=== PATIENT | male | born 1985 | race Caucasian/White ===

== ENCOUNTER 2018-08-14 10:15 | Emergency (ER) | payer OTHER ==
[~2018-08-14] VITALS: Ht 170.2 cm; Wt 102.1 kg
[2018-08-14] MEDS ORDERED: PRINIVIL20 M1 PO (10:22)
[2018-08-14] MEDS ORDERED: HYDROCHLOROTHIA25 M1 PO (10:23)
[2018-08-14 10:45] LABS: ABSOLUTE BASOPHILS 0.1 thou/uL (0.0-0.2); ABSOLUTE EOSINOPHILS 0.7 thou/uL (0.0-0.7); ABSOLUTE LYMPHOCYTES 2.9 thou/uL (0.8-5.3); ABSOLUTE MONOCYTES 0.7 thou/uL (0.0-1.2); ABSOLUTE NEUTROPHILS 5.4 thou/uL (1.6-8.1); EOSINOPHILS 6.7 %; HEMATOCRIT 41.3 % (42.0-52.0); HEMOGLOBIN 14.2 gm/dL (14.0-18.0); LYMPHOCYTES 29.4 %; MCHC 34.3 g/dL (28.0-37.0); MCV 84.5 fL (80.0-100.0); MONOCYTES 7.3 %; MPV 7.4 fl. (7.2-11.1); NUCLEATED RBCS 0 /100WBC; POLYS 55.6 %; RBC 4.88 mil/uL (4.50-6.00); RDW-CV 13.6 % (10.5-14.5); WBC 9.8 thou/uL (4.0-11.0)
[2018-08-14 11:03] LABS: CREATININE 0.8 mg/dL (0.6-1.3); POTASSIUM 4.7 mmol/L (3.5-5.1); TOTAL BILIRUBIN 0.4 mg/dL (<0.1-1.0); TOTAL PROTEIN 7.1 g/dL (6.4-8.2); TROPONIN-I LEVEL 0.14 ng/mL (<0.06)
[2018-08-14 11:18] LABS: PLATELET COUNT* 269 thou/uL (150-400)
[2018-08-14 11:19] LABS: ANISOCYTOSIS 1+; PLATELET ESTIMATE ADEQUATE; POIKILOCYTOSIS 1+
[2018-08-14 11:20] LABS: ALBUMIN 3.6 g/dL (3.4-5.0); CALCIUM 8.7 mg/dL (8.5-10.1)
[2018-08-14 12:38] LABS: INR 1.1; PROTIME 10.8 Seconds (9.20-11.50)
--- NOTE | 2018-08-14 14:49 | EXE ---
[place] [address] STRESS ECHOCARDIOGRAM Name: JULISSA CEDEÑO Room: [facility]#: [id number] Admission: 08/14/18 Attend Phys: Discharge: Date of : 89 Date of Service: 08/14/18 1448 Report #: [id number] THIS REPORT FOR: //name// APPROVED REPORT Study performed: 08/14/2018 14:04:21 Exam: Stress Echocardiogram Indication: Chest pain Patient Location: In-Patient Stress Nurse: Regina Carrasco RN Supervising Physician: Logan Talbot MD Ht: 5 ft 7 in HR: 57 bpm BP: 168/82 mmHg Medical History Cardiac Risk Factors: FHX of CAD, Tobacco History (Former) Procedure The patient underwent an Exercise Stress Test using the Luis Protocol. Blood pressure, heart rate, and EKG were monitored. An Echocardiogram was performed by mechanical laboratory technician in four stages in quad fashion. At peak stress, four selected images were obtained and placed side by side with resting images for comparison. Stress Test Details Stress Test: Exercise stress testing was performed using a Luis protocol. HR Resting HR: 57 bpm Max Heart Rate (APMHR): 189 bpm Max HR Achieved: 157 bpm Target HR (85% APMHR): 160 bpm % of APMHR: 83 Recovery HR: 93 bpm HR response to stress: Normal HR response to stress BP Resting BP: 168/82 mmHg Max BP: 213/70 mmHg Recovery BP: 177/61 mmHg BP response to stress: Abnormal hypertensive response to stress. ECG Resting ECG: [place] [address] STRESS ECHOCARDIOGRAM Name: JULISSA CEDEÑO Room: [facility]#: [id number] Admission: 08/14/18 Attend Phys: Discharge: Date of : 89 Date of Service: 08/14/18 1448 Report #: [id number] Stress ECG: Sinus Tachycardia ST Change: None Arrhythmia: None Recovery ECG: Sinus Rhythm Recovery ST Change: None Recovery Arrhythmia: None Clinical Reason for Termination: Completed protocol Exercise duration: 10 min 31 sec Highest Stage Achieved: Stage 4: 4.2 mph at 16% grade. Exercise capacity: 12.62 METs The patient tolerated the Unna boot protocol exercise without significant cardiac symptoms. Stress ECG Conclusion The baseline 12-lead EKG shows sinus rhythm with normal ST and T wave segments. EKGs obtained during and post exercise showed sinus rhythm and sinus tachycardia with no significant ST or T wave changes when compared to baseline. Pre-Stress Echo The resting Echocardiogram showed normal left ventricular contractility with an estimated Ejection Fraction of about 60-65%. Post-Stress Echo The stress Echocardiogram showed normal left ventricular contractility with an estimated Ejection Fraction of about >70%. Conclusion Clinical Response: Non-ischemic Exercise Capacity: Average Stress ECG Response: Non-ischemic Stress Echo Images: Non-ischemic Other Information Study Quality: Good <ELECTRONICALLY SIGNED> By: Logan Talbot MD, [facility] 08/14/18 1448 1448 1448 Logan Talbot MD, FAC /INF
[2018-08-14 15:22] VITALS: BP 140/86
--- NOTE | 2018-08-14 15:56 | EKG ---
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
--- NOTE | 2018-08-14 15:57 | EKG ---
[place] [address] ELECTROCARDIOGRAM REPORT Name: JULISSA CEDEÑO Room: 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
--- NOTE | 2018-08-15 09:59 | CON ---
[address] [address] CONSULTATION Name: JULISSA CEDEÑO Room: [facility]#: [id number] Admission: 08/14/18 Attend Phys: Discharge: 08/14/18 Date of : 89 Report #: [id number] THIS REPORT FOR: //name// CC: Dr. Tita EVANS physician/PCP Rachna Griffith CARDIOLOGY CONSULTATION INDICATION: Chest pain and hypertension. HISTORY OF PRESENT ILLNESS: The patient is a very pleasant 33-year-old gentleman who was admitted to the hospital with high blood pressure. He has also had intermittent left sternum chest pressure intermittently. This occurs every few days over the past couple of months. The pain does not radiate. There is no associated nausea, vomiting or diaphoresis. He denies any shortness of breath with the discomfort. The pain does not come on with exertion and is not reproducible. The patient ran out of his lisinopril a few days ago; however, continued to take his hydrochlorothiazide. He has noted that his blood pressure has been more elevated at home recently. He is without other cardiac complaints at this time. Cardiac risk factors include family history of premature atherosclerotic coronary artery disease and hypertension. He quit smoking 2 months ago. He denies any history of diabetes. He states that his cholesterol has been okay. PAST MEDICAL HISTORY: 1. Hypertension. 2. Remote history of concussion. PAST SURGICAL HISTORY: No surgical history. CURRENT MEDICATIONS: Lisinopril 20 mg daily, which he ran out of and hydrochlorothiazide 25 mg daily. ALLERGIES: None documented. FAMILY HISTORY: The patient's father of a heart attack at 55. This was his first cardiac event. SOCIAL HISTORY: The patient quit smoking 2 months ago. He drinks alcohol occasionally. REVIEW OF SYSTEMS: A 14-point review of systems as per HPI, otherwise unremarkable. PHYSICAL EXAMINATION: VITAL SIGNS: Blood pressure 169/110 and pulse is 61 [place] [address] CONSULTATION Name: JULISSA CEDEÑO Room: [facility]#: [id number] Admission: 08/14/18 Attend Phys: Discharge: 08/14/18 Date of : 89 Report #: [id number] GENERAL: This is a pleasant gentleman, in no distress. Mood and affect appropriate. HEENT: Sclerae are injected. Extraocular muscles intact. Mucous membranes are moist. NECK: Examination of the neck shows no jugular venous distention. There are no carotid bruits. CHEST: Examination of the chest reveals clear lung garcia, without wheezes, rales or rhonchi. CARDIOVASCULAR EXAMINATION: Reveals a regular rhythm, without gallop or murmur. ABDOMEN: Examination of the abdomen reveals normal bowel sounds. The abdomen is soft and nontender. EXTREMITIES: Examination of the extremities show no edema. Peripheral pulses 2+ and easily palpable. DIAGNOSTIC DATA: Chest x-ray shows no acute cardiopulmonary abnormality. LABORATORY DATA: Labs are reviewed. Sodium 138, potassium 4.7, chloride 103, bicarbonate 26, BUN 15, creatinine 0.8 and serum glucose 116. AST 54, lipase 104, total bilirubin 0.4, calcium 8.7, alkaline phosphatase 51 and ALT 35. Total protein 7.1. Albumin 3.6. EGFR 113. Initial troponin 0.14, followed by less than 0.06. NT-proBNP 110. Coags within normal limits. White blood cell count 9.8, hemoglobin 14.2 and platelet count 269,000. A 12-lead EKG shows sinus rhythm, without acute ST or T-wave abnormality. IMPRESSION AND RECOMMENDATIONS: 1. Hypertension. We would recommend switching to carvedilol 12.5 mg twice daily and follow up as an outpatient. 2. Atypical chest pain. At this point in time, I would like noninvasive stress echocardiogram. Further intervention will be pending the results of that study. I also would recommend a calcium score to see if he has development of any coronary calcifications, which may alter his future treatment. 3. Elevated troponin, likely secondary to strain from hypertension. We will follow clinically. <ELECTRONICALLY SIGNED> By: Logan Talbot MD, [facility] 08/15/18 0959 [id number] [id number] Talbot MD, FACC /nt
== END 2018-08-14 15:38 | disposition home or self-care (01) ==
LOC: M.ERS 10:15
PROVIDERS: Personal Emergency Response Attendant
DX: I16.0 Hypertensive urgency (principal); R07.89 Other chest pain